=== PATIENT | female | born 1980 | race Caucasian/White ===

== ENCOUNTER → 2018-03-08 | Outpatient (CLI) | payer OTHER | LOC: FIMAGING 07:13 | PROVIDERS: ATTEND Obstetrics & Gynecology | DX: O09.522 Supervision of elderly multigravida, second trimester (principal); Z3A.19 19 weeks gestation of pregnancy ==

== ENCOUNTER 2018-07-29 06:00 | Inpatient (IN) | payer OTHER ==
[2018-07-29 06:53] LABS: PLATELET COUNT 177 10^3/uL (150-400)
[2018-07-29] MEDS ORDERED: PENICILLIN G POTASSIUM 5,000,000 UNIT in D5W 150 ML IV ONE (07:00)
[2018-07-29] MEDS ORDERED: TERBUTALINE SULFATE 1 MG/ML VIAL IV PRN (07:00)
[2018-07-29] MEDS ORDERED: OLIVE OIL 118 ML BTL MISC PRN (07:00)
[2018-07-29] MEDS ORDERED: EPSOM SALT 454 GM TP PRN (07:00)
[2018-07-29] MEDS ORDERED: LR 500 ML IV PRN (07:00)
[2018-07-29] MEDS ORDERED: OXYTOCIN/RINGERS LACTATE 1,000 ML IV PRN (07:00)
[2018-07-29] MEDS ORDERED: LIDOCAINE 1% 300 MG/30 ML SDV SC PRN (07:00)
[2018-07-29] MEDS ORDERED: AMMONIA AROMATIC 1 EACH AMP IH PRN (07:00)
[2018-07-29] MEDS ORDERED: LR 1,000 ML IV PRN (07:00)
[2018-07-29] MEDS ORDERED: MISOPROSTOL 200 MCG TAB PO PRN (07:00)
[2018-07-29] MEDS ORDERED: OXYTOCIN/RINGERS LACTATE 500 ML IV SCH (07:00)
[2018-07-29] MEDS ORDERED: IBUPROFEN 600 MG TAB PO PRN (07:00)
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
[2018-07-29] MEDS: PENICILLIN G POTASSIUM 2,500,000 UNIT in D5W 150 ML IV SCH ×2 (11:58→20:28)
--- NOTE | 2018-07-29 12:09 | OBPROG ---
Labor Progress Note Assessment/Plan: Assessment: 37 y/o @ 40 1/7 weeks for elective IOL doing well Plan: Will continue to increase pitocin per protocol. It is unclear if AROM was successful, will monitor for LOF. Epidural when pt desires. Will re check 2 hours. 07/29/18 12:07 Subjective/Intrapartum Course: 07/29/18 12:05 Pt is beginning to feel more intense contractions. Objective: 07/29/18 06:30 Patient ABO/Rh O POSITIVE 07/29/18 06:30 - SVE Dilation (cm): 3 Effacement (%): 80 Station: -2 Membranes: AROM (attempted, min fluid, bloody mucus, will monitor) Amniotic Fluid Color: Bloody - Contraction Pattern Assessment Current Contraction Pattern: Regular (Q 2-3) - FHR Assessment Baker FHR (bpm): 140 FHR Pattern Variability: Moderate FHR Category: 1 - AP Antepartum Course: 07/29/18 12:06 AMA, h/o depression/ anxiety and eating disorders asthma, migraines Oxytocin Orders Assessment - Pre-Induction/Augmentation Assessment Gestational Age: 40 week(s) and 1 day(s) ICD10 Worksheet Patient Problems: Problems Problem Status Onset Encounter for induction of labor Acute Normal labor Acute - ICD10 Problem Qualifiers (1) Normal labor (2) Encounter for induction of labor
[2018-07-29] MEDS ORDERED: fentaNYL 2MCG/ML/BUP 0.1% RTU 100 ML BAG EP ONE (13:21)
[2018-07-29] MEDS ORDERED: PHENYLEPHRINE HCL 100 MCG/ML SYR ONE (13:22)
--- NOTE | 2018-07-29 14:26 | OBPROG ---
Labor Progress Note Assessment/Plan: Assessment: 37 y/o @ 40 1/7 weeks for elective IOL doing well Plan: Upon cervical check she does not have a palpable amnionic sac and she now has LOF clear, small amounts. Anesthesia is working with bolus medications to make her more comfortable. status is reassuring. 07/29/18 12:07 07/29/18 14:26 Subjective/Intrapartum Course: 07/29/18 12:05 Pt is beginning to feel more intense contractions. 07/29/18 14:23 Pt is now doing better with her epidural. She has an area in her RLQ that is still painful. Her contractions became more painful after attempted AROM. Objective: 07/29/18 06:30 Patient ABO/Rh O POSITIVE 07/29/18 06:30 - SVE Dilation (cm): 5, 6 Effacement (%): 80 Station: -1 Membranes: AROM (attempted, min fluid, bloody mucus, will monitor) Amniotic Fluid Color: Clear, Bloody - Contraction Pattern Assessment Current Contraction Pattern: Regular (Q 2-3) - FHR Assessment Baker FHR (bpm): 140 FHR Pattern Variability: Moderate FHR Category: 1 - Procedures Non-surgical Procedures: Amniotomy - AP Antepartum Course: 07/29/18 12:06 AMA, h/o depression/ anxiety and eating disorders asthma, migraines Oxytocin Orders Assessment - Pre-Induction/Augmentation Assessment Gestational Age: 40 week(s) and 1 day(s) ICD10 Worksheet Patient Problems: Problems Problem Status Onset Encounter for induction of labor Acute Normal labor Acute - ICD10 Problem Qualifiers (1) Normal labor (2) Encounter for induction of labor
[2018-07-29] MEDS ORDERED: LIDO/EPI 2% **for epidural** 20 ML SDV ONE (14:35)
[2018-07-29] MEDS ORDERED: PHENYLEPHRINE HCL 100 MCG/ML SYR IVP PRN (15:05)
--- NOTE | 2018-07-29 15:07 | PREANESOB ---
Obstetric Pre-Anesthesia Info - General Info : 3 Para: 1 DAVONTE: 07/28/18 Gestational Age: 40 week(s) and 1 day(s) - Labor Status Cervical Dilation per last OB SVE: 5, 6 Station per last OB SVE: -1 Amniotic Fluid Color: Clear, Bloody Pitocin: In Use Magnesium Sulfate in Use: No Indications for Labor Analgesia: Pain Control Labor Epidural: Yes Anesthesia Allergies/Adverse Reactions: Allergy/AdvReac Type Severity Reaction Status Date / Time No Known Allergies Allergy Unverified 07/27/18 17:44 Visit Medications: Generic Name Dose Route Start Last Admin Trade Name Freq PRN Reason Stop Dose Admin Ammonia (Aromatic Spirit) 1 each 07/29/18 07:00 Ammonia Aromatic IH 08/08/18 06:59 ONCE PRN Fainting Lactated Ringer's 1,000 mls @ 0 mls/hr 07/29/18 07:00 07/29/18 07:33 Lr IV 07/30/18 06:59 1,000 mls PRN PRN Administration SEE PROTOCOL CONDITIONS Protocol Per Protocol Oxytocin/Lactated Ringer's 1,000 mls @ 0 mls/hr 07/29/18 07:00 Pitocin 20 Units/Lr (Premix) IV PRN PRN Post bleeding As Directed Penicillin G Potassium 2,500, 155 mls @ 155 mls/hr 07/29/18 11:00 07/29/18 11 :58 000 unit/ Dextrose IV 08/28/18 10:59 155 mls Q4H DIRK Administration Protocol Lactated Ringer's 500 mls @ 500 mls/hr 07/29/18 07:00 Lr IV PRN PRN Maternal Hypotension Oxytocin/Lactated Ringer's 500 mls @ 0 mls/hr 07/29/18 07:00 07/29/18 07:47 Pitocin 30 Units/Lr (Premix) IV 01/25/19 06:59 500 mls CONT DIRK Administration Protocol Per Protocol Ibuprofen 600 mg 07/29/18 07:00 Motrin PO ONCE PRN post , pain Lidocaine HCl 300 mg 07/29/18 07:00 Lidocaine Hcl 1% SC 01/25/19 06:59 ONCE PRN episiotomy Magnesium Sulfate 454 gm 07/29/18 07:00 Epsom Salt TP 01/25/19 06:59 Q1H PRN perineal discomfort Misoprostol 800 - 1,000 mcg 07/29/18 07:00 Cytotec PO 01/25/19 06:59 ONCE PRN Vaginal Atony/Bleeding [place] Oil 118 ml 07/29/18 07:00 Sweet Oil MISC 01/25/19 06:59 ONCE PRN perineal massage Terbutaline Sulfate 0.25 mg 07/29/18 07:00 Brethine IV 01/25/19 06:59 ONCE PRN Tachysystole Discontinued Medications Generic Name Dose Route Start Last Admin Trade Name Timothy PRN Reason Stop Dose Admin Fentanyl/Bupivacaine HCl Confirm 07/29/18 13:21 Fentanyl/Bupivacaine/Ns 2 Mcg/Ml 0.1% (Premix Administered 07/29/18 13:22 Dose 100 ml EP .STK-MED ONE Penicillin G Potassium 5,000, 160 mls @ 160 mls/hr 07/29/18 07:00 07/29/18 07 :33 000 unit/ Dextrose IV 07/29/18 07:59 160 mls ONCE ONE Administration Protocol Lidocaine/Epinephrine Confirm 07/29/18 14:35 Xylocaine 2%-Epi 1:200,000 Administered 07/29/18 14:36 Dose 20 ml .ROUTE .STK-MED ONE Phenylephrine HCl Confirm 07/29/18 13:22 Neosynephrine Administered 07/29/18 13:23 Dose 1,000 mcg .ROUTE .STK-MED ONE - Vital Signs Height/Weight (Nursing): Height 160.02 cm Weight 63.503 kg Labs: 07/29/18 06:30 Patient ABO/Rh O POSITIVE 07/29/18 06:30
[2018-07-29] MEDS ORDERED: LR 500 ML IV SCH (15:30)
[2018-07-29] MEDS ORDERED: fentaNYL 2MCG/ML/BUP 0.1% RTU 100 ML EP SCH (15:30)
[2018-07-29] MEDS ORDERED: HYDROCORTISONE 0.5% CREAM TP PRN (15:58)
[2018-07-29] MEDS ORDERED: SIMETHICONE 80 MG TAB CHEW PO PRN (15:58)
[2018-07-29] MEDS ORDERED: oxyCODONE IR 5 MG TAB PO PRN (15:58)
--- NOTE | 2018-07-29 16:02 | OBDEL ---
Info Type: Vaginal Presentation at Delivery: Vertex L&D Analgesia/Anesthesia Type: Epidural GBS+: Yes Intrapartum Medications: Generic Name Dose Route Start Last Admin Trade Name Freq PRN Reason Stop Dose Admin Lactated Ringer's 1,000 mls @ 0 mls/hr 07/29/18 07:00 07/29/18 07:33 Lr IV 07/30/18 06:59 1,000 mls PRN PRN Administration SEE PROTOCOL CONDITIONS Protocol Per Protocol Penicillin G Potassium 2,500, 155 mls @ 155 mls/hr 07/29/18 11:00 07/29/18 11 :58 000 unit/ Dextrose IV 08/28/18 10:59 155 mls Q4H DIRK Administration Protocol Oxytocin/Lactated Ringer's 500 mls @ 0 mls/hr 07/29/18 07:00 07/29/18 07:47 Pitocin 30 Units/Lr (Premix) IV 01/25/19 06:59 500 mls CONT DIRK Administration Protocol Per Protocol Discontinued Medications Generic Name Dose Route Start Last Admin Trade Name Freq PRN Reason Stop Dose Admin Penicillin G Potassium 5,000, 160 mls @ 160 mls/hr 07/29/18 07:00 07/29/18 07 :33 000 unit/ Dextrose IV 07/29/18 07:59 160 mls ONCE ONE Administration Protocol - Hospital Course Intrapartum: 07/29/18 12:05 Pt is beginning to feel more intense contractions. 07/29/18 14:23 Pt is now doing better with her epidural. She has an area in her RLQ that is still painful. Her contractions became more painful after attempted AROM. Indications for Delivery: Elective Vaginal Delivery - Delivery Provider Delivery Physician/CNM: Cristina Campos - Labor and Delivery Onset of Contractions Date: 07/29/18 Onset of Contractions Time: 13:00 Onset of Contractions Type: Induced Rupture of Membranes Date: 07/29/18 Rupture of Membranes Time: 12:00 Rupture of Membranes Type: Artificial Amniotic Fluid Color: Clear, Bloody Dilation Complete Date: 07/29/18 Dilation Complete Time: 15:30 Placenta Delivery Date: 07/29/18 Placenta Delivery Time: 15:46 Total Hours of Labor: 2 Non-surgical Procedures: Amniotomy Laceration: 2nd Degree Repair: 2-0, Vicryl Vaginal Sponge Count Correct: Yes Vaginal Needle Count Correct: Yes Vaginal Sweep Performed: Yes EBL: 250 Delivery Events: Nuchal Cord (loose x 1) - Medications Labor Augmentation/Induction Methods Used: Pitocin Labor Augmentation/Induction Indication: Elective Data DAVONTE: 07/28/18 Gestational Age: 40 week(s) and 1 day(s) Baker Delivery Date: 07/29/18 Delivery Time: 15:42 Sex of Infant: Male Score (1 Min): 9 Score (5 Min): 9 ICD10 Worksheet Patient Problems: Problems Problem Status Onset Encounter for induction of labor Acute Normal labor Acute (spontaneous vaginal delivery) Acute - ICD10 Problem Qualifiers (1) Normal labor (2) Encounter for induction of labor (3) (spontaneous vaginal delivery)
[2018-07-29] MEDS: IBUPROFEN 600 MG TAB PO PRN (21:57)
[2018-07-29] MEDS: ACETAMINOPHEN 325 MG TAB PO PRN (21:59)
[2018-07-30] MEDS: IBUPROFEN 600 MG TAB PO PRN ×4 (04:15→21:56)
[2018-07-30] MEDS: ACETAMINOPHEN 325 MG TAB PO PRN ×4 (04:15→21:56)
--- NOTE | 2018-07-30 09:07 | OBPP ---
Progress Note Assessment/Plan: Assessment: 37 now 2009 PPD#1 S/P Plan: Cont routine pp cares, support, anticipate dc home tomorrow. Ольга Camejo MD, FACOG [facility] 07/30/18 10:50 Subjective/ Course: Pt doing well. Minimal discomfort. Voiding, ambulating and yvonne reg diet without issues. Mod lochia. going well. 07/30/18 10:52 Objective: 07/29/18 06:30 Patient ABO/Rh O POSITIVE 07/29/18 06:30 Temp Pulse Resp BP Pulse Ox 36.4 C 77 19 107/81 H 96 07/30/18 08:00 07/30/18 08:00 07/30/18 08:00 07/30/18 08:00 07/30/18 08:00 gen - pleasant, NAD CV - RRR chest - CTAB abd - soft, NT, fundus firm at u-2 ext - trace edema, no calf tenderness. decline perineum exam - as RN apparently just did it and had no concerns. Uterine Position/Fundal Height: Umbilicus -2 Uterine Tone: Firm
[2018-07-30] MEDS: DOCUSATE SODIUM 100 MG CAP PO PRN ×2 (09:53→21:56)
[2018-07-30] MEDS ORDERED: diphenhydrAMINE 25 MG CAP PO PRN (11:21)
[2018-07-30] MEDS ORDERED: DIPHENHYDRAMINE CREAM TP PRN (11:21)
[2018-07-30] MEDS: HYDROCORTISONE 1% CREAM TP SCH ×2 (11:42→22:00)
--- NOTE | 2018-07-30 13:48 | POSTANESTH ---
Post Anesthetic Evaluation Cardiovascular Status: Normal, Stable Respiratory Status: Normal, Stable Level of Consciousness/Mental Status: Can Participate in Eval Pain Control: Adequate, Prn Tx Ordered Nausea/Vomiting Control: Adequate, Prn Tx Ordered Complications Possibly Related to Anesthesia: None Noted Notes: back site clear. doing well epidural block fully resolved
[2018-07-31] MEDS: ACETAMINOPHEN 325 MG TAB PO PRN ×2 (05:16→13:02)
[2018-07-31] MEDS: IBUPROFEN 600 MG TAB PO PRN ×2 (05:16→13:02)
[2018-07-31 08:15] VITALS: BP 104/66
[2018-07-31] MEDS: HYDROCORTISONE 1% CREAM TP SCH (09:00)
--- NOTE | 2018-07-31 12:24 | OBPP ---
Progress Note Assessment/Plan: Assessment: 37 y/o PPD #2 s/p elective IOL doing well. Plan: D/c home today with Rx Ibuprofen and Oxy prn. Follow-up @ [facility] 3 and 6 weeks. 07/29/18 12:07 07/29/18 14:26 07/31/18 12:24 Subjective/ Course: Pt doing well. Minimal discomfort. Voiding, ambulating and yvonne reg diet without issues. Mod lochia. going well. 07/30/18 10:52 07/31/18 12:20 Pt is doing well this am. She has some perineal pain and hemorrhoid pain needing Ibuprofen, Tylenol and occ Oxy to control. She is ambulating and voiding and has min lochia. She has also had a nml BM. She is working on nursing and has some nipple soreness and is frustrated because he is needing bili lights. They will decide this afternoon if baby can go home. [facility]. She is aware of need for follow-up 3 and 6 weeks. Objective: 07/29/18 06:30 Patient ABO/Rh O POSITIVE 07/29/18 06:30 Temp Pulse Resp BP Pulse Ox 36.8 C 57 L 18 104/66 96 07/31/18 08:00 07/31/18 08:00 07/31/18 08:00 07/31/18 08:00 07/31/18 08:00 Uterine Position/Fundal Height: Umbilicus -2 Uterine Tone: Firm Physical Exam - Physical Exam General Appearance: alert, no apparent distress Neck: non-tender, full range of motion, supple Respiratory: chest non-tender, lungs clear, normal breath sounds Cardiac/Chest: regular rate, rhythm Abdomen: normal bowel sounds Extremities: swelling (no), Khanh's sign (neg)
== END 2018-07-31 17:15 | disposition home or self-care (01) | DRG 807 ==
LOC: FLD 06:11 → FOB 19:30
PROVIDERS: ADMIT Obstetrics & Gynecology; ATTEND Obstetrics & Gynecology
PROC: 0UQGXZZ Repair Vagina, External Approach (ICD-10-PCS; principal; 2018-07-29)
PROC: 10E0XZZ Delivery of Products of Conception, External Approach (ICD-10-PCS; principal; 2018-07-29)
PROC: 3E033VJ Introduction of Other Hormone into Peripheral Vein, Percutaneous Approach (ICD-10-PCS; 2018-07-29)
PROC: 10907ZC Drainage of Amniotic Fluid, Therapeutic from Products of Conception, Via Natural or Artificial Opening (ICD-10-PCS; 2018-07-29)
DX: O48.0 Post-term pregnancy (principal); O69.81X0 Labor and delivery complicated by cord around neck, without compression, not applicable or unspecified; O70.1 Second degree perineal laceration during delivery; O99.824 Streptococcus B carrier state complicating childbirth; O99.89 Other specified diseases and conditions complicating pregnancy, childbirth and the puerperium; J45.909 Unspecified asthma, uncomplicated; Z3A.40 40 weeks gestation of pregnancy; Z37.0 Single live birth
CPT/HCPCS: J2370; J2540; J2590; J3105